=== PATIENT | female | born 1985 ===

== ENCOUNTER 2016-08-13 05:52 | Emergency (ER) | payer MEDICAID ==
[2016-08-13 06:00] VITALS: BMI 34.8
--- NOTE | 2016-08-13 06:07 | ED PDOC ---
Arrival/HPI - General Chief Complaint: Female Genitourinary Time Seen by Provider: 08/13/16 06:06 Historian: Patient - History of Present Illness Narrative History of Present Illness (Text): 08/13/16 06:07 Niurka Law is a 30 year old female who presents to the Emergency department complaining of vaginal irritation. Patient believes she developed a yeast infection yesterday after taking Amoxicillin for few days to treat a throat infection. Patient states she took Monistat last night with minimal relief but woke up this morning with burning vaginal irritation/discomfort and dysuria. Patient denies any hematuria, fever, chills, abdominal pain, nausea, vomiting, diarrhea, back pain, or any other complaints. Time/Duration: Other (this morning) Symptom Onset: Gradual Symptom Course: Unchanged Quality: Burning Activities at Onset: Rest, Light Context: Home Past Medical History - Provider Review Nursing Documentation Reviewed: Yes - Infectious Disease Hx of Infectious Diseases: None - Tetanus Immunization Tetanus Immunization: Unknown - Cardiac Hx Cardiac Disorders: No Hx Hypertension: No Hx Pacemaker: No - Pulmonary Hx Respiratory Disorders: No Hx Asthma: No Hx Chronic Obstructive Pulmonary Disease (COPD): No Hx Emphysema: No - Neurological HX Cerebrovascular Accident: No Hx Dementia: No Hx Seizures: No - HEENT Hx HEENT Disorder: No - Renal Hx Renal Disorder: No - Endocrine/Metabolic Hx Endocrine Disorders: No - Hematological/Oncological Hx Anemia: No Hx Cancer: No - Integumentary Hx Dermatological Disorder: No - Musculoskeletal/Rheumatological Hx Falls: No - Gastrointestinal Hx Gastrointestinal Disorders: No Hx Gastroesophageal Reflux: No - Genitourinary/Gynecological Hx Genitourinary Disorders: No - Psychiatric Hx Depression: No Hx Emotional Abuse: No Hx Physical Abuse: No Hx Substance Use: No - Surgical History Hx Breast Biopsy: Yes (mass removed from left breast) Hx Section: Yes Hx Gastric Bypass Surgery: No - Suicidal Assessment Feels Threatened In Home Enviroment: No Family/Social History - Physician Review Nursing Documentation Reviewed: Yes Family/Social History: No Known Family HX Smoking Status: Never Smoked Hx Alcohol Use: No Hx Substance Use: No Hx Substance Use Treatment: No Allergies/Home Meds Allergies/Adverse Reactions: Allergies No Known Allergies Allergy (Verified 03/18/16 12:50) Review of Systems - Physician Review All systems were reviewed & negative as marked: Yes - Review of Systems Constitutional: Normal. absent: Fevers Eyes: Normal ENT: Normal Respiratory: Normal. absent: SOB, Cough Cardiovascular: Normal. absent: Chest Pain Gastrointestinal: Normal. absent: Abdominal Pain, Diarrhea, Nausea, Vomiting Genitourinary Female: Dysuria, Other (+vaginal irritation) Musculoskeletal: Normal. absent: Back Pain, Neck Pain Skin: Normal. absent: Rash Neurological: Normal. absent: Headache, Dizziness Endocrine: Normal Hemo/Lymphatic: Normal Psychiatric: Normal Physical Exam Vital Signs Reviewed: Yes Vital Signs Temp Pulse Resp BP Pulse Ox 08/13/16 06:19 98.1 F 75 18 124/86 99 Temperature: Afebrile Blood Pressure: Normal Pulse: Regular Respiratory Rate: Normal Appearance: Positive for: Well-Appearing, Non-Toxic, Comfortable Pain Distress: None Mental Status: Positive for: Alert and Oriented X 3 - Systems Exam Head: Present: Atraumatic, Normocephalic Pupils: Present: PERRL Extroacular Muscles: Present: EOMI Conjunctiva: Present: Normal Mouth: Present: Moist Mucous Membranes Neck: Present: Normal Range of Motion Respiratory/Chest: Present: Clear to Auscultation, Good Air Exchange. No: Respiratory Distress, Accessory Muscle Use Cardiovascular: Present: Regular Rate and Rhythm, Normal S1, S2. No: Murmurs Abdomen: Present: Normal Bowel Sounds. No: Tenderness, Distention, Peritoneal Signs Back: Present: Normal Inspection Upper Extremity: Present: Normal Inspection. No: Cyanosis, Edema Lower Extremity: Present: Normal Inspection. No: Edema Neurological: Present: GCS=15, CN II-XII Intact, Speech Normal Skin: Present: Warm, Dry, Normal Color. No: Rashes Psychiatric: Present: Alert, Oriented x 3, Normal Insight, Normal Concentration Medical Decision Making ED Course and Treatment: 08/13/16 06:07 Impression: 30 year old female complaining of burning vagina irritation/discomfort and dysuria this morning. Differential Diagnosis include but are not limited to: UTI vs. yeast infection Plan: -- Urinalysis -- Reassess and disposition Progress Notes: 08/13/16 06:16 Pt refused pelvic exam. - Lab Interpretations Lab Results: Lab Results 08/13/16 06:15: Urine Color Yellow, Urine Appearance Cloudy, Urine pH 6.0, Ur Specific [place] 1.025, Urine Protein 30 H, Urine Glucose (UA) Negative, Urine Ketones Negative, Urine Blood Trace-intact H, Urine Nitrate Negative, Urine Bilirubin Negative, Urine Urobilinogen 0.2, Ur Leukocyte Esterase Moderate H, Urine RBC 0 - 2, Urine WBC 15 - 20, Ur Epithelial Cells 6 - 8, Urine Bacteria Mod - Medication Orders Current Medication Orders: Discontinued Medications Cephalexin Monohydrate (Keflex) 500 mg PO STAT STA PRN Reason: Protocol Stop: 08/13/16 06:41 Last Admin: 08/13/16 06:56 Dose: 500 mg Fluconazole (Diflucan) 150 mg PO STAT STA PRN Reason: Protocol Stop: 08/13/16 06:47 Last Admin: 08/13/16 06:56 Dose: 150 mg Phenazopyridine HCl (Pyridium) 200 mg PO STAT STA Stop: 08/13/16 06:47 Last Admin: 08/13/16 06:56 Dose: 200 mg - Scribe Statement The provider has reviewed the documentation as recorded by the Xiao Rebolledo All medical record entries made by the Simibaftab were at my direction and personally dictated by me. I have reviewed the chart and agree that the record accurately reflects my personal performance of the history, physical exam, medical decision making, and the department course for this patient. I have also personally directed, reviewed, and agree with the discharge instructions and disposition. Disposition/Present on Arrival - Present on Arrival Any Indicators Present on Arrival: No History of DVT/PE: No History of Uncontrolled Diabetes: No Urinary Catheter: No History of Decub. Ulcer: No History Surgical Site Infection Following: None - Disposition Have Diagnosis and Disposition been Completed?: Yes Diagnosis: Urinary tract infection, Yeast infection of the vagina Disposition: HOME/ ROUTINE Disposition Time: 07:00 Condition: GOOD Discharge Instructions (ExitCare): Urinary Tract Infection in Women (ED), Vulvovaginal Candidiasis (ED) Prescriptions: Fluconazole [Diflucan] 150 mg PO ONCE #1 tab Cephalexin [Keflex] 500 mg PO BID #14 capsule Phenazopyridine [Pyridium] 200 mg PO TID #6 tab
[2016-08-13 06:22] VITALS: BP 124/86; PULSE 75; RESP 18; TEMP 98.1; O2SAT 99
[2016-08-13 06:36] LABS: URINE BILIRUBIN NEGATIVE (NEGATIVE); URINE BLOOD TRACE-INTACT (NEGATIVE); URINE GLUCOSE (UA) NEGATIVE (NEGATIVE); URINE KETONE NEGATIVE (NEGATIVE); URINE LEUKOCYTE ESTERASE MODERATE Leu/uL (NEGATIVE); URINE PROTEIN 30 mg/dL (<30 mg/dL); URINE UROBILINOGEN 0.2 E.U./dL (<1 E.U./dL)
[2016-08-13 06:39] LABS: URINE APPEARANCE CLOUDY (CLEAR); URINE COLOR YELLOW (YELLOW)
[2016-08-13 06:48] LABS: URINE RBC 0 - 2 /hpf (0-2)
[2016-08-13 06:49] LABS: URINE BACTERIA MOD (NEG); URINE WBC 15 - 20 /hpf (0-6)
== END 2016-08-13 07:00 | disposition home or self-care (01) ==
LOC: ED 05:52
DX: B37.3 Candidiasis of vulva and vagina (principal); N39.0 Urinary tract infection, site not specified